=== PATIENT | female | born 1960 | race Caucasian/White ===

== ENCOUNTER → 2018-06-29 | Outpatient (CLI) | payer OTHER | LOC: BMCIMAGING 11:33 ==

== ENCOUNTER 2018-07-23 18:25 | Emergency (ER) | payer OTHER ==
--- NOTE | 2018-07-23 20:00 | EDPHY ---
H & P Stated Complaint: regurging food into throat and choking on it/r abd pain constipation Time Seen by Provider: 07/23/18 18:43 HPI/ROS: CHIEF COMPLAINT: Food in throat HISTORY OF PRESENT ILLNESS: This is a 57-year-old female who is here with chief complaint of food that she feels is rising from her stomach up into her throat. She 1st noticed this yesterday, while driving. She states that she turned on the heat in the seat of her car and then developed this sensation that food was rising up her esophagus into her throat. She has this sensation again tonight. She is able to manage her secretions. This did not began while she was eating. However, she feels that she would have difficulty swallowing solids, although she can swallow liquids. After swallowing she feels that the food is hung up. She is taking omeprazole and her primary care provider has been evaluating her for GERD. She is not currently experiencing what she would describe as heartburn. Of note, she has been undergoing an outpatient evaluation of various complaints and states that she has learned that she has multiple food allergies. She also reports a history of constipation. Apparently she has had some blood in her stool and is scheduled to undergo colonoscopy on July [address] Noriega. REVIEW OF SYSTEMS: A ten system review of systems was performed and is negative with the exception of the items mentioned in the HPI. Past medical history: 1. Probable GERD 2. Multiple food allergies Social history: She lives with her . She does not use tobacco products. Rarely drinks alcohol. General Appearance: Alert. Vital signs reviewed. Blood pressure 175/109 at triage. Blood pressure 132/78 at discharge. Swallowing easily. Eyes: Pupils equal and round, no conjunctival injection, no discharge. Anicteric. ENT, Mouth: Mucous membranes are moist, no oropharyngeal edema. Managing her secretions. Neck: No lymphadenopathy, supple. Respiratory: Lungs are clear to auscultation; no wheezes, rales, or rhonchi. Cardiovascular: Regular rate and rhythm; no murmur, rub, or gallop. Gastrointestinal: Abdomen is soft and nontender, no masses or organomegaly, bowel sounds normal. Skin: Warm and dry, no rashes on exposed skin, normal color. Neurological: Alert and oriented. Moving all four extremities easily and equally. Psychiatric: Normal affect. - Personal History Current Tetanus Diphtheria and Acellular Pertussis (TDAP): Yes - Medical/Surgical History Hx Asthma: No Hx Chronic Respiratory Disease: No Hx Diabetes: No Hx Cardiac Disease: No Hx Renal Disease: No Hx Cirrhosis: No Hx Alcoholism: No Hx HIV/AIDS: No Hx Splenectomy or Spleen Trauma: No Other PMH: allergies to multiple foods etc/gerd - Social History Smoking Status: Former smoker Constitutional: Initial Vital Signs Temperature (C) 37.2 C 07/23/18 18:36 Heart Rate 71 07/23/18 18:36 Respiratory Rate 18 07/23/18 18:36 Blood Pressure 175/109 H 07/23/18 18:36 O2 Sat (%) 97 07/23/18 18:36 O2 Delivery Mode Room Air Allergies/Adverse Reactions: grocery bag/plastics Allergy (Uncoded 07/23/18 18:36) Home Medications: Medication Instructions Recorded Prilosec 07/23/18 Medical Decision Making ED Course/Re-evaluation: Patient was given a p.o. challenge in the emergency department. She was able to drink some diet Pepsi. She then spit some saliva into a cup. I do not think that she has an esophageal food impaction. She seems to be describing dysphagia, primarily for solids. This might be related to her GERD. I do not think that she has an emergency condition that needs further evaluation tonight. She has established care with Dr. Noriega of Gastroenterology and I recommend that she call his office tomorrow and see if she can arrange an appointment to be evaluated for this problem, possibly to undergo endoscopy. We reviewed the danger signs that should prompt her to return immediately. She brought the some of her medical records with her, which I reviewed. Differential Diagnosis: I considered a differential diagnosis that includes but is not limited to esophageal food impaction, angioedema, hiatal hernia, GERD, achalasia, dysphagia. Departure - Departure Disposition: Home, Routine, Self-Care Clinical Impression: Dysphagia Qualifiers: Dysphagia type: unspecified Qualified Code(s): R13.10 - Dysphagia, unspecified Condition: Good Instructions: Gastroesophageal Reflux Disease (ED), Dysphagia (ED) Additional Instructions: Continue omeprazole. If you are having trouble swallowing solids, stick with liquids. Please call Dr. Noriega's office 1st thing tomorrow morning and let the office staff know that you were seen in the emergency department with this swallowing difficulty. See if you can arrange for an endoscopy. I would let the staff know that you will see any doctor available for these studies. Referrals: Avani Rojas CNP [Primary Care Provider] - As per Instructions Gabino Noriega MD, FACG [Medical Doctor] - As per Instructions
[2018-07-23 20:10] VITALS: BP 132/78
== END 2018-07-23 20:09 | disposition home or self-care (01) ==
DX: R13.10 Dysphagia, unspecified (principal)

== ENCOUNTER → 2018-08-14 | Day surgery (SDC) | payer OTHER ==
[~2018-08-14] MED LIST: DEXAMETHASONE 4 MG/ML VIAL IVP PRN; HYDROCODONE/APAP 5/325 TAB PO PRN; LIDOCAINE 2% 100 MG/5 ML SYR ONE; LR 1,000 ML IV ONE; MEPERIDINE 25 MG/0.5 ML AMP IVP PRN; NALOXONE HCL 0.4 MG/ML INJ IVP PRN; ONDANSETRON 4 MG/2 ML VIAL IVP PRN; PROMETHAZINE HCL 25 MG/ML INJ IVP PRN; PROPOFOL 200 MG/20 ML VIAL ONE; PROPOFOL/EMULSION 500 MG/50 ML BOTTLE IV ONE; fentaNYL 100 MCG/2 ML INJ IVP PRN; fentaNYL 100 MCG/2 ML INJ ONE
--- NOTE | 2018-08-14 15:42 | PDANEPAE ---
ANE Past Medical History - Cardiovascular History Hx Hypertension: No Hx Arrhythmias: No Hx Chest Pain: No Hx Coronary Artery / Peripheral Vascular Disease: No Hx CHF / Valvular Disease: No Hx Palpitations: No - Pulmonary History Hx COPD: No Hx Asthma/Reactive Airway Disease: No Hx Recent Upper Respiratory Infection: No Hx Oxygen in Use at Home: No Hx Sleep Apnea: No Sleep Apnea Screening Result - Last Documented: Negative - Neurologic History Hx Cerebrovascular Accident: No Hx Seizures: No Hx Dementia: No - Endocrine History Hx Diabetes: No - Renal History Hx Renal Disorders: No - Liver History Hx Hepatic Disorders: No - Neurological & Psychiatric Hx Hx Neurological and Psychiatric Disorders: Yes Neurological / Psychiatric History Comment: anxious about procedure - Cancer History Hx Cancer: No - Congenital Disorder History Hx Congenital Disorders: No - GI History Hx Gastrointestinal Disorders: Yes Gastrointestinal History Comment: GERD. dysphagia. abd pain with fish and fish protein- has made dietary adjustments and this has subsided - Other Health History Other Health History: recent metal toxicity test on 08/10/18 through pcp - Chronic Pain History Chronic Pain: No - Surgical History Prior Surgeries: n/a ANE Review of Systems Review of Systems: - Exercise capacity METS (RN): 4 METS ANE Patient History - Allergies Allergies/Adverse Reactions: mercury (elemental) Allergy (Verified 08/13/18 17:26) drain tubes Allergy (Uncoded 08/13/18 17:26) grocery bag/plastics Allergy (Uncoded 08/13/18 15:22) pt believes she is sensitive to these titanium dioxide Allergy (Uncoded 08/13/18 17:26) - Home Medications Home Medications: Epipen Kit 08/13/18 [Last Taken Unknown] ZyrTEC 10 mg (*) 08/13/18 [Last Taken 08/11/18] - NPO status NPO Since - Liquids (Date): 08/14/18 NPO Since - Liquids (Time): 13:00 NPO Since - Solids (Date): 08/13/18 NPO Since - Solids (Time): 18:00 - Smoking Hx Smoking Status: Current some day smoker - Family Anes Hx Family Hx Anesthesia Complications: mother is allergic to contrast dye. mother had cardiac arrest on OR table ANE Labs/Vital Signs - Vital Signs Blood Pressure: 149/99 Heart Rate: 86 Respiratory Rate: 18 O2 Sat (%): 96 Height: 162 cm Weight: 66.4 kg
--- NOTE | 2018-08-14 15:50 | PDANEPAE ---
ANE History of Present Illness BLOOD IN STOOL, HERE FOR egd AND COLONOSCOPY ANE Past Medical History - Cardiovascular History Hx Hypertension: No Hx Arrhythmias: No Hx Chest Pain: No Hx Coronary Artery / Peripheral Vascular Disease: No Hx CHF / Valvular Disease: No Hx Palpitations: No - Pulmonary History Hx COPD: No Hx Asthma/Reactive Airway Disease: No Hx Recent Upper Respiratory Infection: No Hx Oxygen in Use at Home: No Hx Sleep Apnea: No Sleep Apnea Screening Result - Last Documented: Negative - Neurologic History Hx Cerebrovascular Accident: No Hx Seizures: No Hx Dementia: No - Endocrine History Hx Diabetes: No - Renal History Hx Renal Disorders: No - Liver History Hx Hepatic Disorders: No - Neurological & Psychiatric Hx Hx Neurological and Psychiatric Disorders: Yes Neurological / Psychiatric History Comment: anxious about procedure - Cancer History Hx Cancer: No - Congenital Disorder History Hx Congenital Disorders: No - GI History Hx Gastrointestinal Disorders: Yes Gastrointestinal History Comment: GERD. dysphagia. abd pain with fish and fish protein- has made dietary adjustments and this has subsided - Other Health History Other Health History: recent metal toxicity test on 08/10/18 through pcp - Chronic Pain History Chronic Pain: No - Surgical History Prior Surgeries: n/a ANE Review of Systems Review of Systems: - Exercise capacity METS (RN): 4 METS ANE Patient History - Allergies Allergies/Adverse Reactions: mercury (elemental) Allergy (Verified 08/13/18 17:26) drain tubes Allergy (Uncoded 08/13/18 17:26) grocery bag/plastics Allergy (Uncoded 08/13/18 15:22) pt believes she is sensitive to these titanium dioxide Allergy (Uncoded 08/13/18 17:26) - Home Medications Home Medications: Epipen Kit 08/13/18 [Last Taken Unknown] ZyrTEC 10 mg (*) 08/13/18 [Last Taken 08/11/18] - NPO status NPO Since - Liquids (Date): 08/14/18 NPO Since - Liquids (Time): 13:00 NPO Since - Solids (Date): 08/13/18 NPO Since - Solids (Time): 18:00 - Smoking Hx Smoking Status: Current some day smoker - Family Anes Hx Family Hx Anesthesia Complications: mother is allergic to contrast dye. mother had cardiac arrest on OR table ANE Labs/Vital Signs - Vital Signs Blood Pressure: 149/99 Heart Rate: 86 Respiratory Rate: 18 O2 Sat (%): 96 Height: 162 cm Weight: 66.4 kg ANE Physical Exam - Airway Neck exam: FROM Mallampati Score: Class 2 Mouth exam: normal dental/mouth exam - Pulmonary Pulmonary: no respiratory distress, no rales or rhonchi - Cardiovascular Cardiovascular: regular rate and rhythym, no murmur, rub, or gallop - ASA Status ASA Status: II ANE Anesthesia Plan Anesthesia Plan: GA with mask Total IV Anesthesia: Yes
--- NOTE | 2018-08-14 15:56 | PDGENHP ---
History & Physical Chief Complaint: dysphagis query reflux?, heme positive stool History of Present Illness: intermittant throat tightening, query slow transit vs dysphagia. heme pos stool, constipation Pertinent Past, Social, Family History: rare alcohol. no tobacco. mother with panc cancer no known colon cacner or polyps. no sig PMH but possible allergies to many products Relevant Physical Exam: A+Ox3. CTA. S1S2, RRR. +BS, soft, nt Cardiorespiratory Assessment: class 2
--- NOTE | 2018-08-14 17:05 | POSTANESTH ---
Post Anesthetic Evaluation Cardiovascular Status: Normal, Stable Respiratory Status: Normal, Stable Level of Consciousness/Mental Status: Can Participate in Eval, Alert and Oriented Pain Control: Adequate, Prn Tx Ordered Nausea/Vomiting Control: Adequate, Prn Tx Ordered Complications Possibly Related to Anesthesia: None Noted
--- NOTE | 2018-08-14 17:09 | GIREPORT ---
[facility] Surgical Services - Endoscopy Department Patient Name: Kaveh Saleem Procedure Date: 08/14/2018 3:43 PM Patient Type: Outpatient Attending MD/ ER Physician: Al Cervantes MD Procedure: Upper GI endoscopy Indications: Dysphagia (I suspect slow transit and not true dysphagia), Suspected gastro-esophageal reflux disease Providers: Al Cervantes MD Referring MD: Avani Rojas NP Medicines: Propofol per Anesthesia Complications: No immediate complications. Estimated blood loss: Minimal. Description of Procedure: After obtaining informed consent, the endoscope was passed under direct vision. Throughout the procedure, the patient's blood pressure, pulse, and oxygen saturations were monitored continuously. The Endoscope was intro duced through the mouth, and advanced to the third part of duodenum. The uppe r GI endoscopy was accomplished without difficulty. The patient tolerated th e procedure well. Findings: The examined esophagus was normal. Biopsies were obtained from the prox imal and distal esophagus with cold forceps for histology of suspected eosinophilic esophagitis. The gastroesophageal junction was normal. A TTS dilator was passed thro ugh the scope. Dilation with an 18-19-20 mm x 8 cm CRE balloon dilator was performed to 20 mm. The dilation site was examined and showed no change . Estimated blood loss: none. A small hiatal hernia was present. The examined duodenum was normal. Biopsies for histology were taken wit h a cold forceps for evaluation of celiac disease. Estimated blood loss was minimal. (Normal ampulla in photo number 4) The exam was otherwise without abnormality. Estimated Blood Loss: Estimated blood loss was minimal. Post Op Diagnosis: - Normal esophagus. Biopsied. - Normal gastroesophageal junction. Dilated. - Small hiatal hernia. - Normal examined duodenum. Biopsied. - The examination was otherwise normal. Recommendation: - Await pathology results. Doubt EoE. - My office will call with the pathology result with 5-7 days. If you h ave not heard from my office by 12-14, do not assume the pathology is андрей l, please call [phone] to get the pathology results. - Follow an antireflux regimen. - Use Protonix (pantoprazole) 40 mg PO daily for 2 months. Take 30-60 minutes before breakfast - If any nighttime or nurse emergency symptoms, consider QHS H2RA such as ranitidine 300 mg PO QHS - Perform a colonoscopy today. - Return to GI clinic in 4 weeks. - Return to primary care physician as previously scheduled. - Thank you for allowing me to help in your patient's care. Do not hesi galarza to call with any questions. Attending Participation: I personally performed the entire procedure. Billy Karimi M.D Al Cervantes MD 08/14/2018 5:09:24 PM This report has been signed electronicallyMatthew MD Billy Number of Addenda: 0 Note Initiated On: 08/14/2018 3:43 PM Total Procedure Duration Time 0 hours 9 minutes 46 seconds [email or web address]
--- NOTE | 2018-08-14 17:17 | GIREPORT ---
[facility] Surgical Services - Endoscopy Department Patient Name: Kaveh Saleem Procedure Date: 08/14/2018 4:18 PM Patient Type: Outpatient Attending MD/ ER Physician: Al Cervantes MD Procedure: Colonoscopy Indications: Heme positive stool Providers: Al Cervantes MD Referring MD: Avani Rojas NP Medicines: Propofol per Anesthesia = IV general with spont resps Complications: No immediate complications. Estimated blood loss: Minimal. Description of Procedure: After obtaining informed consent, the scope was passed under direct vis ion. Throughout the procedure, the patient's blood pressure, pulse, and oxyg en saturations were monitored continuously. The Colonoscope with irrigatio n channel was introduced through the anus and advanced to the cecum, identified by the appendiceal orifice, ileocecal valve and palpation. T he colonoscopy was performed without difficulty. The patient tolerated the procedure well. The quality of the bowel preparation was good. Findings: The digital rectal exam was normal. The perianal exam findings include non-thrombosed external hemorrhoids. A 27 mm polyp was found in the sigmoid colon. The polyp was pedunculate d. An endoloop was maneuvered over the polyp stalk and closed at the mucosal attachment prior to removal in order to prevent bleeding and The polyp was removed with a hot snare. Resection and retrieval were complete using a snare. 11 sessile polyps were found in the rectum. The polyps were 1 to 3 mm i n size. These polyps were removed with a piecemeal technique using a cold biopsy forceps. Resection and retrieval were complete. Estimated blood loss was minimal. A 11 mm polyp was found in the rectum. The polyp was semi-pedunculated. The polyp was removed with a hot snare. Resection and retrieval were comple te. Estimated blood loss: none. Many small and large-mouthed diverticula were found in the sigmoid colo n, descending colon, transverse colon and ascending colon. The exam was otherwise without abnormality. Estimated Blood Loss: Estimated blood loss was minimal. Post Op Diagnosis: - Non-thrombosed external hemorrhoids found on perianal exam. - One 27 mm polyp in the sigmoid colon, removed with a hot snare. Resec sonam and retrieved. - 11 1 to 3 mm polyps in the rectum, removed piecemeal using a cold bio psy forceps. Resected and retrieved. - One 11 mm polyp in the rectum, removed with a hot snare. Resected and retrieved. - Diverticulosis in the sigmoid colon, in the descending colon, in the transverse colon and in the ascending colon. - The examination was otherwise normal. Recommendation: - Await pathology results. - My office will call with the pathology result with 5-7 days. If you h ave not heard from my office by -14, do not assume the pathology is андрей l, please call [phone] to get the pathology results. - Repeat colonoscopy date to be determined after pending pathology resu lts are reviewed for surveillance based on pathology results. Two years [facility] genetic evaluation. Three years max. I may want to look sooner pending pathology results - High fiber diet indefinitely. - 30-35 grams of dietary fiber per day. Can use supplemental fiber. - A high fiber diet may decrease risk of complications from diverticulo sis. There is no need to avoid seeds or nuts. - Avoid Aspirin and NSAID's for 7-10 days except as used for cardiac or stroke prevention. - If pathology reveal adenomatous tissue, then all first degree relativ e should have screening colonoscopy starting at age 40. - Patient has a contact number available for emergencies. The signs and symptoms of potential delayed complications were discussed with the pat ient. Return to normal activities tomorrow. Written discharge instructions we re provided to the patient. - Continue present medications. - Discharge patient to home (ambulatory). - Return to primary care physician as previously scheduled. Attending Participation: I personally performed the entire procedure. Billy Karimi M.D Al Cervantes MD 08/14/2018 5:17:19 PM This report has been signed electronicallyMatthew MD Billy Number of Addenda: 0 Note Initiated On: 08/14/2018 4:18 PM Total Procedure Duration Time 0 hours 35 minutes 27 seconds [email or web address]
[2018-08-14 18:02] VITALS: BP 127/92
== END | disposition home or self-care (01) ==
LOC: FSGY 14:14
PROVIDERS: ATTEND Internal Medicine Gastroenterology
PROC: 0DB28ZX Excision of Middle Esophagus, Via Natural or Artificial Opening Endoscopic, Diagnostic (ICD-10-PCS; principal; 2018-08-14 15:45)
PROC: 0DB38ZX Excision of Lower Esophagus, Via Natural or Artificial Opening Endoscopic, Diagnostic (ICD-10-PCS; principal; 2018-08-14 15:45)
PROC: 0D748ZZ Dilation of Esophagogastric Junction, Via Natural or Artificial Opening Endoscopic (ICD-10-PCS; principal; 2018-08-14 15:45)
PROC: 0DBP8ZX Excision of Rectum, Via Natural or Artificial Opening Endoscopic, Diagnostic (ICD-10-PCS; principal; 2018-08-14 15:45)
PROC: 0DBN8ZX Excision of Sigmoid Colon, Via Natural or Artificial Opening Endoscopic, Diagnostic (ICD-10-PCS; principal; 2018-08-14 15:45)
DX: D12.5 Benign neoplasm of sigmoid colon (principal); K62.1 Rectal polyp; K64.4 Residual hemorrhoidal skin tags; K57.30 Diverticulosis of large intestine without perforation or abscess without bleeding; K59.04 Chronic idiopathic constipation; R13.14 Dysphagia, pharyngoesophageal phase; Z20.2 Contact with and (suspected) exposure to infections with a predominantly sexual mode of transmission; Z77.018 Contact with and (suspected) exposure to other hazardous metals
CPT/HCPCS: 43239; 43249; 45385; C1726; J2001; J2704; J3010